=== PATIENT | male | born 1995 | race Caucasian/White ===

== ENCOUNTER 2022-06-14 05:48 | Emergency (ER) | payer SELFPAY ==
[2022-06-14 05:53] VITALS: BP 134/80; PULSE 72; RESP 16; TEMP 36.8; O2SAT 97; BMI 28.7
--- NOTE | 2022-06-14 05:58 | PC.NURSE ---
Left wrist elevated and ice pack placed on wrist
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
[2022-06-14 06:30] VITALS: BP 132/83; PULSE 61; RESP 16; O2SAT 98
--- NOTE | 2022-06-14 06:55 | PC.NURSE ---
Velcro splint placed on left wrist at this time.
[2022-06-14 07:02] VITALS: BP 129/78; PULSE 60; RESP 16; TEMP 36.8; O2SAT 98
== END 2022-06-14 07:04 | disposition home or self-care (01) ==
PROVIDERS: Emergency Provider Emergency Medicine
DX: S62.102A Fracture of unspecified carpal bone, left wrist, initial encounter for closed fracture (principal); V86.96XA Unspecified occupant of dirt bike or motor/cross bike injured in nontraffic accident, initial encounter
CPT/HCPCS: 73110; 73130; 99283